=== PATIENT | female | born 1965 | race Two or more races ===

== ENCOUNTER 2017-02-05 14:54 | Emergency (ER) | payer SELFPAY ==
[~2017-02-05] VITALS: Ht 160 cm; Wt 99.8 kg
[2017-02-05] MEDS ORDERED: NEBI5TAB8 PO (15:13)
[2017-02-05] MEDS ORDERED: ALPR0.25 PO (15:13)
[2017-02-05] MEDS ORDERED: LEVO75TA7 PO (15:13)
[2017-02-05] MEDS ORDERED: ROSU5TAB PO (15:13)
[2017-02-05] MEDS ORDERED: NEBI10TA2 PO (15:13)
--- NOTE | 2017-02-05 15:15 | NUR ---
PT CAME IN FOR SUDDEN SOB, ANXIETY, HEADACHE, AND DIZZINESS. SEEN BY PA FOR EVAL. VSS. SAEFTY AND COMFORT MEASURES PROVIDED. WILL MONITOR.
--- NOTE | 2017-02-05 15:50 | NUR ---
PT TAKEN TO CT.
[2017-02-05 16:45] VITALS: BP 135/77
--- NOTE | 2017-02-05 16:52 | NUR ---
Patient discharged to home in stable condition. Written and verbal after care instructions given. Patient verbalizes understanding of instruction.
== END 2017-02-05 16:53 | disposition home or self-care (01) ==
LOC: ER 14:56
DX: G43.909 Migraine, unspecified, not intractable, without status migrainosus (principal); R11.2 Nausea with vomiting, unspecified; R42 Dizziness and giddiness; F41.9 Anxiety disorder, unspecified; I10 Essential (primary) hypertension; E03.9 Hypothyroidism, unspecified; E78.5 Hyperlipidemia, unspecified; D64.9 Anemia, unspecified
CPT/HCPCS: 70450-TC; 71010-TC; A4606; Z7610

== ENCOUNTER 2017-03-30 20:54 | Emergency (ER) | payer BC ==
[~2017-03-30] VITALS: Ht 160 cm; Wt 99.8 kg
[~2017-03-30 20:54] MED LIST: ALPR0.25 PO; LEVO75TA7 PO; NEBI10TA2 PO; NEBI5TAB8 PO; ROSU5TAB PO
[2017-03-30 21:14] VITALS: BP 106/55
== END 2017-03-30 21:55 | disposition home or self-care (01) ==
LOC: ER 20:54
DX: J20.9 Acute bronchitis, unspecified (principal); I10 Essential (primary) hypertension; E03.9 Hypothyroidism, unspecified
CPT/HCPCS: 71010; 99283; A4606; Z7610

== ENCOUNTER 2025-06-30 08:28 | Inpatient (IN) | payer MEDICARE ==
[2025-06-30] VITALS (9 sets, daily range): BP systolic 95–124; BP diastolic 59–83; TEMP 97.7–98.4; O2SAT 94–99
[~2025-06-30] VITALS: Ht 160 cm; Wt 99.8 kg
[2025-06-30] MEDS ORDERED: OXYMETAZOLINE HCL NASAL SPRAY 30 ML BOTTLE NS ONE ×2 (11:16→11:24)
[2025-06-30] MEDS ORDERED: FENTANYL PF 100MCG/2ML AMPUL ONE (11:16)
[2025-06-30] MEDS ORDERED: LABETALOL HCL IV 100MG VIAL ONE (11:16)
[2025-06-30] MEDS ORDERED: MIDAZOLAM HCL 2 MG/2ML VIAL ONE (11:16)
[2025-06-30] MEDS ORDERED: SUGAMMADEX SODIUM 200 MG/2 ML VIAL IV ONE (11:16)
[2025-06-30] MEDS ORDERED: VECURONIUM 10 MG VIAL ONE (11:17)
[2025-06-30] MEDS ORDERED: ROCURONIUM BROMIDE 50 MG/5 ML ONE (11:17)
[2025-06-30] MEDS ORDERED: SEVOFLURANE 250 ML BOTTLE IH ONE (11:24)
[2025-06-30] MEDS ORDERED: VANCOMYCIN 1 GM VIAL ONE (11:28)
[2025-06-30] MEDS ORDERED: dexaMETHasone SOD PHOSPHATE 2 ML ONE (11:28)
[2025-06-30] MEDS ORDERED: LIDOCAINE 2%-EPI 1:100,000 30 ML VIAL ONE (11:28)
[2025-06-30] MEDS ORDERED: ACETAMINOPHEN 325 MG TABLET PO PRN ×2 (15:00→16:00)
[2025-06-30] MEDS ORDERED: IV NS 0.9% 1,000 ML IV PRN (15:00)
[2025-06-30] MEDS ORDERED: Z GUARD REMEDY 4 OZ OINT TP PRN (16:00)
[2025-06-30] MEDS ORDERED: MAG HYDROX/AL HYDROX/SIMETH 30 ML UDC PO PRN (16:00)
[2025-06-30] MEDS ORDERED: MAGNESIUM HYDROXIDE 30 ML UDC PO PRN (16:00)
[2025-06-30] MEDS ORDERED: ONDANSETRON HCL/PF 4 MG/2 ML VIAL IVP PRN (16:00)
[2025-06-30] MEDS: VANCOMYCIN 1 GM in IV D5W 250ml IV SCH (22:20)
[2025-07-01] MEDS: HYDROMORPHONE 1 MG/1 ML DISP.SYRIN IV PRN (06:10)
[2025-07-01 06:54] LABS: PLATELET COUNT (AUTO) 169 K/uL (150-450); RED BLOOD CELL COUNT(AUTO) 3.12 MIL/uL (4.0-5.2); RED CELL DISTRIBUTION WIDTH 14.3 % (11.5-15.0); WHITE BLOOD COUNT (AUTO) 8.4 K/uL (4.3-11.0)
[2025-07-01 06:57] LABS: CALCIUM, SERUM 8.7 mg/dL (8.5-10.1); CREATININE 1.0 mg/dL (0.6-1.3); PHOSPHORUS 3.4 mg/dL (2.5-4.9); SODIUM SERUM 146.0 mmol/L (136-145); UREA NITROGEN, BLOOD 21.0 mg/dL (7-18)
[2025-07-01 07:00] VITALS: BP 120/72; TEMP 97.9; O2SAT 94
[2025-07-01] MEDS: ONDANSETRON HCL/PF 4 MG/2 ML VIAL IV PRN (07:57)
[2025-07-01] MEDS: MAGNESIUM OXIDE 400 MG TABLET PO ONE (09:51)
[2025-07-01] MEDS ORDERED: ALPRAZOLAM 0.25 MG TABLET PO PRN (17:00)
[2025-07-01] MEDS ORDERED: ATORVASTATIN 40 MG TABLET PO SCH (22:00)
[2025-07-01] MEDS ORDERED: METOPROLOL TARTRATE 50 MG TABLET PO SCH (22:00)
[2025-07-02] MEDS ORDERED: METOPROLOL TARTRATE 25 MG TABLET PO SCH (09:00)
[2025-07-02] MEDS ORDERED: LEVOTHYROXINE SODIUM 75 MCG TABLET PO SCH (09:00)
== END 2025-07-01 13:00 | disposition home or self-care (01) | DRG 142 ==
LOC: DS 08:28 → MED 15:18
PROVIDERS: ADMIT Internal Medicine; ATTEND Internal Medicine
PROC: 0NSR04Z Reposition Maxilla with Internal Fixation Device, Open Approach (ICD-10-PCS; 2025-06-30)
PROC: 0N5R0ZZ Destruction of Maxilla, Open Approach (ICD-10-PCS; 2025-06-30)
PROC: 0N5T0ZZ Destruction of Right Mandible, Open Approach (ICD-10-PCS; 2025-06-30)
PROC: 0NUT07Z Supplement Right Mandible with Autologous Tissue Substitute, Open Approach (ICD-10-PCS; 2025-06-30)
PROC: 0NUR07Z Supplement Maxilla with Autologous Tissue Substitute, Open Approach (ICD-10-PCS; 2025-06-30)
PROC: 0NST0ZZ Reposition Right Mandible, Open Approach (ICD-10-PCS; principal; 2025-06-30 10:10)
DX: S02.40CB Maxillary fracture, right side, initial encounter for open fracture (principal); D16.5 Benign neoplasm of lower jaw bone; S02.69XB Fracture of mandible of other specified site, initial encounter for open fracture; E03.9 Hypothyroidism, unspecified; I10 Essential (primary) hypertension; M27.2 Inflammatory conditions of jaws; X58.XXXA Exposure to other specified factors, initial encounter; E78.5 Hyperlipidemia, unspecified; F41.9 Anxiety disorder, unspecified; Y93.9 Activity, unspecified; Y92.009 Unspecified place in unspecified non-institutional (private) residence as the place of occurrence of the external cause
CPT/HCPCS: 36415; 71045-TC; 80048-TC; 83735-TC; 84100-TC; 85025-TC; 88305-TC; 88311-TC; A4217; A4223; A4338; C1713; G0378; J1100; J1171; J1885; J2250; J2405; J2704; J3010; J3373; J3490; J7030; J7060